=== PATIENT | male | born 1965 | race Caucasian/White ===

== ENCOUNTER 2024-12-05 13:42 | Emergency (ER) | payer OTHER, SELFPAY ==
[2024-12-05 13:44] VITALS: BP 139/88
--- NOTE | 2024-12-05 15:10 | ED.GENMED ---
History of Present Illness
General
Chief Complaint: Substance Abuse
Time Seen by Provider: 12/05/24 14:18
History of Present Illness
History of Present Illness:
59-year-old male history of hypertension, hyperlipidemia, anxiety, depression presenting for substance abuse. Patient states that he uses cocaine and wants to stop. Patient states that he was recently discharged from a custodial house on Saturday 12/02
and started using again. Patient denies any physical complaints, no chest pain or shortness of breath. Patient states that he drinks alcohol occasionally most recently 2 days ago. No abdominal pain, nausea, vomiting or tremors.
Past History
Past History
ED Past Medical History: HTN and Hypercholesterolemia
ED Past Surgical History: Other (Detached retina)
Social History
Tobacco: Non-smoker
Alcohol: None
Phy Exam
Physical Exam
Physical Exam:
General: Alert, no acute distress. not diaphoretic
Head: NCAT
Eyes: clear conjunctiva
Neck: supple
Cardiac: regular rate and rhythm, no murmur
Lungs: clear to auscultation bilaterally. No wheezes, rales, or rhonchi. Speaking full unlabored sentences. No respiratory distress.
Abdomen: soft, nondistended nontender. No rebound or guarding.
MSK: no lower extremity edema bilaterally. No deformity
Skin: warm, dry
Neuro: Alert and oriented x3. no focal deficits. no tremors. ambulatory with steady gait
Course
Vital Signs
Initial and Last Documented VS:
Initial Vital Signs
Temp Pulse Resp BP Pulse Ox
97.9 F 82 16 139/88 97
12/05/24 13:44 12/05/24 13:44 12/05/24 13:44 12/05/24 13:44 12/05/24 13:44
Last Documented Vital Signs
Temp Pulse Resp BP Pulse Ox
97.9 F 71 16 153/102 100
12/05/24 13:44 12/05/24 17:27 12/05/24 17:27 12/05/24 17:34 12/05/24 17:27
MDM/Problems Addressed
MDM/Problems Addressed:
59-year-old male presenting for help for cocaine abuse, last used yesterday. Patient denies any physical complaints. Will discuss with Homero negrete
Patient evaluated by Danilo, has bed available. Patient hemodynamically stable with no complaints. Medically cleared. Pt will drive himself to placement
*Pulse Oximetry
SaO2: 97
Oxygen Mode of Delivery: Room air
Patient hypoxic: no
*Critical Care Note
Total Time (30-74mins, 75-104mins- exclusive of procedures): Not Applicable
ED Attending Note
-
Portions of this chart may have been created with voice recognition software.� Occasional wrong word or��sound alike� substitutions may have occurred due to the inherent limitations of voice recognition software.
Discharge Plan
Departure
Patient Disposition: Home (Routine Discharge)
Date of Disposition: 12/05/24
Time of Disposition: 17:43
Patient with high blood pressure during this ER visit?: Yes
Discharge Problem:
Cocaine abuse
Instructions: Drug Misuse and Addiction (DC), BLOOD PRESSURE
Prescriptions:
No Action
cyclobenzaprine 10 MG tablet
10 mg PO TIDPRN PRN (Reason: spasm) Qty: 12 0RF
prednisone 10 MG tablet
10 mg PO .TAPER Qty: 30 0RF
Rx Instructions:
Take 40mg daily x3days, 30mg daily x3days,
20mg daily x3days, 10mg daily x3days.
hydrocodone-acetaminophen 1 TABLET tablet
1 tab PO Q4HPRN PRN (Reason: pain) Qty: 15 0RF
methylprednisolone [Medrol (Taz)] 4 MG tablets,dose pack
4 tab PO . DIRECT Qty: 1 0RF
Referrals:
UNKNOWN - PT DOES,NOT KNOW [Family Provider]
Activity Restrictions/Additional Instructions:
Medically cleared to rehab
Return to the emergency department for chest pain, shortness of breath or new/worsening symptoms
Interventions
Interventions:
*Risk Screen - Suicide Last Done: 12/05/24 15:14
*General Assessment Last Done: 12/05/24 17:27
*Neglect/Abuse Screening Last Done: 12/05/24 15:14
*ED- Fall Risk Assessment Last Done: 12/05/24 15:14
*ED COVID-19 Vaccine History Last Done: 12/05/24 15:14
*Nursing Disposition Last Done: 12/05/24 17:57
ED- Neurological Assessment Last Done: 12/05/24 15:14
ED-Psychological Assessment Last Done: 12/05/24 15:14
Discharge Date and Time
Discharge Date/Time: 12/05/24 17:57
Print Language: MALAY
[2024-12-05 17:34] VITALS: BP 153/102
== END 2024-12-05 17:57 | disposition home or self-care (01) ==
LOC: EMR 13:42
PROVIDERS: EMERGENCY PHYSICIAN Emergency Medicine
DX: F14.10 Cocaine abuse, uncomplicated (principal); I10 Essential (primary) hypertension; E78.00 Pure hypercholesterolemia, unspecified; F41.9 Anxiety disorder, unspecified; F32.A Depression, unspecified
CPT/HCPCS: 99281